=== PATIENT | female | born 1990 | race Caucasian/White ===

== ENCOUNTER 2017-12-04 04:20 | Emergency (ER) | payer MEDICAID ==
[~2017-12-04] VITALS: Ht 167.6 cm; Wt 108.3 kg
[~2017-12-04 04:20] MED LIST: ACET1TAB25 PO; ALPR1TAB2 PO; CEPH500C5 PO
[2017-12-04 05:16] LABS: URINE AMPHETAMINE SCREEN NEGATIVE (Neg); URINE BARBITUATE SCREEN NEGATIVE (Neg); URINE BENZODIAZEPINES SCREEN POSITIVE (Neg); URINE CANNABINOID SCREEN NEGATIVE (Neg); URINE COCAINE SCREEN NEGATIVE (Neg); URINE METHADONE SCREEN NEGATIVE (Neg); URINE OPIATE SCREEN NEGATIVE (Neg); URINE PHENCYCLIDINE SCREEN NEGATIVE (Neg)
[2017-12-04 05:29] LABS: D-DIMER 0.22 MG/L FEU (0-0.50)
[2017-12-04 05:41] LABS: ETHANOL 0.01 GM/DL (0.0-0.010)
[2017-12-04 05:56] VITALS: BP 144/90
== END 2017-12-04 06:02 | disposition home or self-care (01) ==
LOC: ER 04:21
DX: J06.9 Acute upper respiratory infection, unspecified (principal); F13.10 Sedative, hypnotic or anxiolytic abuse, uncomplicated; Z56.0 Unemployment, unspecified; Z88.2 Allergy status to sulfonamides; Z88.0 Allergy status to penicillin; Z88.6 Allergy status to analgesic agent; Z88.8 Allergy status to other drugs, medicaments and biological substances; Z79.899 Other long term (current) drug therapy
CPT/HCPCS: 36415; 80305; 80320; 84439; 84443; 84484; 85379; 93005; 99285